=== PATIENT | female | born 1975 | race Caucasian/White ===

== ENCOUNTER 2020-12-05 07:58 | Inpatient (IN) | payer BC ==
[~2020-12-05] VITALS: Ht 154 cm; Wt 100.0 kg
[2020-12-05] MEDS ORDERED: NITRO DRIP 25000 MCG/D5W 250 ML IV ONE (08:06)
[2020-12-05] MEDS ORDERED: HEParin 1000 UNIT/ML (10ML VIAL) FOR BOLUS ONE (08:06)
[2020-12-05] MEDS ORDERED: VERAPAMIL 5 MG/2 ML (CALAN) VIAL IV ONE ×2 (08:06→09:23)
[2020-12-05] MEDS ORDERED: NS IV 1000 ML 1,000 ML ONE (08:08)
[2020-12-05] MEDS ORDERED: HEParin (CATH LAB) 2,000 ML IV ONE (08:08)
--- NOTE | 2020-12-05 08:11 | ED Chest Pain ---
General Stated Complaint: CP Source: patient, EMS Exam Limitations: no limitations History of Present Illness Date Seen by Provider: Dec 05, 2020 Time Seen by Provider: 08:00 Initial Comments Patient is a 45-year-old female who presents to the emergency department today with a chief complaint of substernal chest pain radiating into her back and left jaw and left arm. Patient states that the pain was worse at onset around 630 this morning when she woke from sleep. She states that it is slightly better now and rates it at a "1". EMS confirmed the patient was having a STEMI on scene. She has no past medical history other than headaches for which she takes Topamax but last took it about a month ago. She is also been on phentermine and her last dose was last week. Patient states that she was a little bit nauseous with the pain. She has never had any pain like this before and denies any pain in recent days. No history of hypertension, diabetes or recent illness. No fevers, chills, cough or congestion. No recent black or bloody stools. All other review of systems reviewed and negative except as stated above. Timing/Duration: 1-3 hours Severity/Quality: severe, aching, pressure Location: substernal Radiation: jaw, arms, back Activities at Onset: none Prior CP/Workup: no prior chest pain, no prior cardiac workup ASA po IMPREGNATOR HELPER: Yes NTG SL IMPREGNATOR HELPER: No Allergies and Home Medications Allergies Coded Allergies: No Known Drug Allergies (Unverified , 12/05/20) Patient Home Medication List Home Medication List Reviewed: Yes Review of Systems Review of Systems Constitutional: see HPI EENTM: No Symptoms Reported Respiratory: No Symptoms Reported Cardiovascular: Chest Pain Gastrointestinal: No Symptoms Reported Genitourinary: No Symptoms Reported Musculoskeletal: no symptoms reported Skin: no symptoms reported All Other Systems Reviewed Negative Unless Noted: Yes Physical Exam Vital Signs Vital Signs - First Documented 12/05/20 07:59 Pulse 90 Resp 18 B/P (MAP) 128/114 (119) Pulse Ox 99 O2 Delivery Room Air Capillary Refill : Height, Weight, BMI Height: '" Weight: lbs. oz. kg; BMI Method: General Appearance: No Apparent Distress, WD/WN HEENT: PERRL/EOMI Respiratory: Lungs Clear, Normal Breath Sounds, No Accessory Muscle Use Cardiovascular: Regular Rate, Rhythm, Normal Peripheral Pulses Gastrointestinal: Non Tender, Soft Extremity: Normal Inspection Neurologic/Psychiatric: Alert, Oriented x3, No Motor/Sensory Deficits, Normal Mood/Affect Skin: Normal Color, Warm/Dry Progress/Results/Core Measures Results/Orders Lab Results Laboratory Tests Test 12/05/20 08:05 Range/Units White Blood Count 13.0 H 4.3-11.0 10^3/uL Red Blood Count 4.50 3.80-5.11 10^6/uL Hemoglobin 12.2 11.5-16.0 g/dL Hematocrit 40 35-52 % Mean Corpuscular Volume 88 80-99 fL Mean Corpuscular Hemoglobin 27 25-34 pg Mean Corpuscular Hemoglobin Concent 31 L 32-36 g/dL Red Cell Distribution Width 14.7 H 10.0-14.5 % Platelet Count 226 130-400 10^3/uL Mean Platelet Volume 12.4 H 9.0-12.2 fL Immature Granulocyte % (Auto) 0 % Neutrophils (%) (Auto) 65 42-75 % Lymphocytes (%) (Auto) 26 12-44 % Monocytes (%) (Auto) 6 0-12 % Eosinophils (%) (Auto) 3 0-10 % Basophils (%) (Auto) 0 0-10 % Neutrophils # (Auto) 8.4 H 1.8-7.8 10^3/uL Lymphocytes # (Auto) 3.3 1.0-4.0 10^3/uL Monocytes # (Auto) 0.7 0.0-1.0 10^3/uL Eosinophils # (Auto) 0.4 H 0.0-0.3 10^3/uL Basophils # (Auto) 0.0 0.0-0.1 10^3/uL Immature Granulocyte # (Auto) 0.1 0.0-0.1 10^3/uL Prothrombin Time 12.6 12.2-14.7 SEC INR Comment 0.9 0.8-1.4 Activated Partial Thromboplast Time 31 24-35 SEC Sodium Level 140 135-145 MMOL/L Potassium Level 3.7 3.6-5.0 MMOL/L Chloride Level 108 H 98-107 MMOL/L Carbon Dioxide Level 21 21-32 MMOL/L Anion Gap 11 5-14 MMOL/L Blood Urea Nitrogen 7 7-18 MG/DL Creatinine 0.72 0.60-1.30 MG/DL Estimat Glomerular Filtration Rate > 60 BUN/Creatinine Ratio 10 Glucose Level 126 H 70-105 MG/DL Calcium Level 9.5 8.5-10.1 MG/DL Corrected Calcium 9.6 8.5-10.1 MG/DL Total Bilirubin 0.2 0.1-1.0 MG/DL Aspartate Amino Transf (AST/SGOT) 38 H 5-34 U/L Alanine Aminotransferase (ALT/SGPT) 29 0-55 U/L Alkaline Phosphatase 69 40-136 U/L Troponin I 0.848 *H <0.028 NG/ML Total Protein 7.0 6.4-8.2 GM/DL Albumin 3.9 3.2-4.5 GM/DL Vital Signs/I&O 12/05/20 07:59 Pulse 90 Resp 18 B/P (MAP) 128/114 (119) Pulse Ox 99 O2 Delivery Room Air Progress Progress Note : Time: 08:11 Progress Note Case was discussed with Dr. Del Cid on-call for cardiology prior to patient arrival upon evaluation of the EKG transmitted by EMS. He states to activate Circus Supervisor Initial ECG Impression Date: Dec 05, 2020 Initial ECG Impression Time: 08:05 Initial ECG Rhythm: Normal Sinus Initial ECG Impression: Acute RI Comment ST segment elevation inferiorly and in leads 3,4,5 and 6 Departure Impression Primary Impression: Acute ST segment elevation RI Disposition: ADMITTED INPATIENT Condition: Stable Admissions Decision to Admit Reason: Admit from ER (General) Decision to Admit/Date: Dec 05, 2020 Time/Decision to Admit Time: 08:11 SIXTO BURRELL MD Dec 05, 2020 08:11
[2020-12-05 08:16] VITALS: BP 128/114
[2020-12-05 08:25] LABS: BASOPHILS % (AUTO) 0 % (0-10); EOSINOPHILS # (AUTO) 0.4 10^3/uL (0.0-0.3); EOSINOPHILS % (AUTO) 3 % (0-10); HEMATOCRIT 40 % (35-52); HEMOGLOBIN 12.2 g/dL (11.5-16.0); LYMPHOCYTES # (AUTO) 3.3 10^3/uL (1.0-4.0); LYMPHOCYTES % (AUTO) 26 % (12-44); MEAN CORPUSCULAR HEMOGLOBIN 27 pg (25-34); MEAN CORPUSCULAR HGB CONC 31 g/dL (32-36); MEAN CORPUSCULAR VOLUME 88 fL (80-99); MEAN PLATELET VOLUME 12.4 fL (9.0-12.2); MONOCYTES # (AUTO) 0.7 10^3/uL (0.0-1.0); MONOCYTES % (AUTO) 6 % (0-12); NEUTROPHILS # (AUTO) 8.4 10^3/uL (1.8-7.8); NEUTROPHILS % (AUTO) 65 % (42-75); PLATELET COUNT 226 10^3/uL (130-400)
[2020-12-05 08:28] LABS: INR 0.9 (0.8-1.4); PROTHROMBIN TIME PATIENT 12.6 SEC (12.2-14.7)
[2020-12-05 08:31] LABS: ALANINE AMINOTRANSFERASE 29 U/L (0-55); ALBUMIN 3.9 GM/DL (3.2-4.5); ALKALINE PHOSPHATASE 69 U/L (40-136); BILIRUBIN,TOTAL 0.2 MG/DL (0.1-1.0); BUN/CREATININE RATIO 10; CALCIUM 9.5 MG/DL (8.5-10.1); CARBON DIOXIDE 21 MMOL/L (21-32); CHLORIDE 108 MMOL/L (98-107); CREATININE SERUM 0.72 MG/DL (0.60-1.30); GFR ESTIMATED > 60; GLUCOSE 126 MG/DL (70-105); POTASSIUM 3.7 MMOL/L (3.6-5.0); SODIUM 140 MMOL/L (135-145)
[2020-12-05] MEDS ORDERED: ATROPINE INJECTION 1 MG/10 ML SYR (ABBOTT) ONE (08:40)
[2020-12-05] MEDS ORDERED: TICAGRELOR 90 MG TABLET (BRILINTA) PO ONE (08:59)
[2020-12-05] MEDS ORDERED: ADENOSINE 6 MG/2 ML (ADENOCARD) VIAL IV ONE (09:01)
[2020-12-05] MEDS ORDERED: ADENOSINE 90 MG/30 ML (ADENOSCAN) VIAL IV ONE (09:02)
[2020-12-05] MEDS ORDERED: morphine INJ 4 MG/ML 1 ML (VIAL/SYRINGE) ONE (09:13)
[2020-12-05] MEDS ORDERED: fentaNYL INJ 100 MCG/2 ML AMP ONE (09:26)
[2020-12-05] MEDS ORDERED: MIDAZOLAM 5 MG/5 ML (VERSED) VIAL ONE (09:26)
[2020-12-05] MEDS ORDERED: PATIENT MAY USE OWN MEDS, ALL PO SCH (10:00)
--- NOTE | 2020-12-05 10:11 | Pre-Op Note & Conscious Sedat ---
Pre-Operative Progress Note H&P Reviewed The H&P was reviewed, patient examined and no changes noted. Date H&P Reviewed: Dec 05, 2020 Time H&P Reviewed: 08:00 Pre-Op Diagnosis: Inferolateral STEMI Conscious Sedation Pre-Proced ASA Score 3 For ASA 3 and 4: Consider anesthesia and medical clearance. Also, for patients with a history of failed moderate sedation consider anesthesia. Airway Lungs Heart ASA score ASA 1: a normal healthy patient ASA 2: a patient with a mild systemic disease (mid diabetes, controlled hypertension, obesity ASA 3: a patient with a severe systemic disease that limits activity (angina, COPD, prior Myocardial infarction) ASA 4: a patient with an incapacitating disease that is a constant threat to life (CHF, renal failure) ASA 5: a moribund patient not expected to survive 24 hrs. (ruptured aneurysm) ASA 6: a declared brain- patient whose organs are being harvested. For emergent operations, add the letter E after the classification Mallampati Classification Grade 3 Sedation Plan Discussed risks with patient/fam The patient is an appropriate candidate to undergo the planned procedure, emile tion, and anesthesia. The patient immediately re-assessed prior to indication. LEONEL SCANLON JR, MD Dec 05, 2020 10:11
--- NOTE | 2020-12-05 10:30 | History & Physicial-Cardiolgy ---
HPI-Cardiology Cardiology Consultation: Date of Consultation 12/05/20 Date of Admission 12/05/2020 Attending Physician Dread Del Cid Jr, MD Admitting Physician No,Local Physician Consulting Physician DREAD DEL CID JR, MD HPI: Time Seen by a Provider: 08:00 Chief Complaint: Chest pain. The patient is a pleasant 45-year-old female with no known history of coronary artery disease. She was in her usual state of health until about 630 this morning when she developed severe substernal chest discomfort with radiation to her left arm and jaw. She was also diaphoretic. She was concerned and called 911 within a short period of time. Upon arrival of the javascript front end developer, an electrocardiogram was performed in the field which showed inferolateral ST elevation and a code STEMI was called from the field. I was subsequently notified about the STEMI in route. When the patient's chest pain was at its worst, she states it was 10/10. When she was in the emergency room after rece iving aspirin her chest pain was 1/10. She complained of some slight shortness of breath. She denies paroxysmal nocturnal dyspnea, orthopnea, palpitations, lightheadedness, syncope, or lower extremity edema. She smokes approximately half pack of cigarettes per day. She denies any illegal drug use. Review of Systems-Cardiology Review of Systems Other comments Review of 10 organ systems is as per the history of present illness, otherwise negative. All Other Systems Reviewed Negative Unless Noted: Yes [id number] Hx Patient Social History Marrital Status: Smoking Status: Current Everyday Smoker Cigaretts per day: 10 Past Medical History PMH Obesity. Family Medical History Family Medical History: Her mother has a history of coronary artery disease. Allergies and Home Medications Allergies Coded Allergies: No Known Drug Allergies (Unverified , 12/05/20) Patient Home Medication List Home Medication List Reviewed: Yes Physical Exam-Cardiology Physical Exam Vital Signs/I&O 12/05/20 12/05/20 12/05/20 12/05/20 07:59 08:16 10:12 10:15 Pulse 90 90 71 Resp 18 18 B/P (MAP) 128/114 (119) 128/114 (119) 117/88 (98) Pulse Ox 99 99 96 O2 Delivery Room Air Nasal Cannula O2 Flow Rate 2.00 Capillary Refill : Less Than 3 Seconds Constitutional: appears stated age, AAO x 3, well-developed, well-nourished, other (She is morbidly obese.) HEENT: normal ENT inspection, EOMI Neck: supple, normal inspection, carotid pulses are 2 + bilaterally, with good upstrokes Respiratory: lungs clear to auscultation Cardiovascular: regular rate-rhythm, S1 and S2, other (No murmur.) Gastrointestinal: soft, other (No tenderness.) Rectal: deferred Extremities: normal range of motion, normal inspection (No edema.) Neurologic/Psychiatric: die designer apprentice II-XII nml as tested, alert, normal mood/affect, oriented x 3 Skin: normal color, diaphoresis Data Review Labs Laboratory Tests 12/05/20 08:05: White Blood Count 13.0H, Red Blood Count 4.50, Hemoglobin 12.2, Hematocrit 40, Mean Corpuscular Volume 88, Mean Corpuscular Hemoglobin 27, Mean Corpuscular Hemoglobin Concent 31L, Red Cell Distribution Width 14.7H, Platelet Count 226, Mean Platelet Volume 12.4H, Immature Granulocyte % (Auto) 0, Neutrophils (%) (Auto) 65, Lymphocytes (%) (Auto) 26, Monocytes (%) (Auto) 6, Eosinophils (%) (Auto) 3, Basophils (%) (Auto) 0, Neutrophils # (Auto) 8.4H, Lymphocytes # (Auto) 3.3, Monocytes # (Auto) 0.7, Eosinophils # (Auto) 0.4H, Basophils # (Auto ) 0.0, Immature Granulocyte # (Auto) 0.1, Prothrombin Time 12.6, INR Comment 0.9, Activated Partial Thromboplast Time 31, Sodium Level 140, Potassium Level 3.7, Chloride Level 108H, Carbon Dioxide Level 21, Anion Gap 11, Blood Urea Nit rogen 7, Creatinine 0.72, Estimat Glomerular Filtration Rate > 60, BUN/Creatinine Ratio 10, Glucose Level 126H, Calcium Level 9.5, Corrected Calcium 9.6, Total Bilirubin 0.2, Aspartate Amino Transf (AST/SGOT) 38H, Alanine Aminotransferase (ALT/SGPT) 29, Alkaline Phosphatase 69, Troponin I 0.848*H, Total Protein 7.0, Albumin 3.9 ECG Impression ECG Comment Sinus rhythm with inferior and lateral precordial ST elevation. A/P-Cardiology Assessment/Admission Diagnosis Acute inferolateral STEMI. The patient had a total thrombotic occlusion of the nondominant right coronary artery. This was treated with angioplasty and drug- eluting stent placement with 1 drug-eluting stent from the proximal down to mid right coronary artery at which point the nondominant right coronary artery divides into multiple small branches which would be too small for stenting. She was given aspirin in the emergency room and ticagrelor in the cardiac catheterization laboratory. These will be continued. She will be placed on beta-franchesca and high-dose statin medication. I will obtain an echocardiogram later today to assess her left ventricular function. Morbid obesity. She needs to work on weight loss to help reduce her risk of recurrent cardiac and noncardiac events. Cigarette smoker. Cigarette smoking cessation was strongly advised. The patient was counseled in this regard. Admission Status: Inpatient Order (span 2 midnights) Reason for Inpatient Admission: Inferolateral STEMI. Clinical Quality Measures AMI/AHF: ASA po Prior to arrival: Yes DREAD DEL CID JR, MD Dec 05, 2020 10:29
[2020-12-05] MEDS ORDERED: ANTACID SUSP 30 ML UDC (MYLANTA) PO PRN (10:45)
--- NOTE | 2020-12-05 11:04 | Coronary Angiography & PCI ---
Coronary Angiography & PCI DATE OF PROCEDURE: 12/05/20 INDICATION: Inferolateral STEMI. PROCEDURES PERFORMED: 1. Diagnostic coronary angiography. 2. Left heart catheterization with hemodynamic measurements. 3.drug-eluting stent to mid right coronary artery for acute inferolateral ST elevation myocardial infarction. PROCEDURE DETAILS: Left heart catheterization was performed through the right radial artery utilizing a 6 Hong Konger system. A 6 [place] Konger Voda 3 guide catheter was utilized to interrogate the left coronary artery. A 6 [place]er Simeon right guide catheter was utilized to interrogate the right coronary artery. There was a fair amount of difficulty finding an appropriate guide catheter with stent in the right coronary artery and this caused a patient related delay to first device activation. Following the procedure, a vascular band was applied to the right radial artery access site and the sheath was removed without difficulty. RESULTS: HEMODYNAMICS: The aortic pressure was 130/88 mmHg. The left ventricular pressure was 131 over 9 mmHg with a left ventricular end-diastolic pressure of 28 mmHg. There was no significant pressure gradient upon the pullback across the aortic valve. CORONARY ANGIOGRAPHY: 1. Left main coronary artery: The left main coronary artery is very short in caliber and free of significant disease. 2. Left anterior descending coronary artery: This is a very large vessel that wraps around the apex and is free of significant disease. 3. Left circumflex coronary artery: The left circumflex coronary artery is dominant and free of significant disease. 4. Right coronary artery: The right coronary artery is small and nondominant. The right coronary artery was totally occluded in the midsegment with evidence of thrombus. PERCUTANEOUS CORONARY INTERVENTION OF RIGHT CORONARY ARTERY: Percutaneous coronary intervention was carried out on the mid right coronary artery through a 6 Hong Konger 3 DRC (Simeon) guide catheter. There was difficulty engaging the right coronary artery with a JR4 guide catheter and an AL-1 guide catheter. This caused the patient related delay to first device activation. Once I finally was able to engage the right coronary artery with the 3 DRC guide catheter, I excessively crossed the lesion with a Whisper medium support guidewire. I subsequently performed coronary angioplasty with a 2.5 x 12 mm Trek balloon at a pressure of 2-6 lilly for multiple inflations. After the first inflation, flow was restored. It then became evident that at the site of the occlusion in the mid right coronary artery, the distal continuation of the vessel was actually multiple small branches. None of these was more than 2 mm in maximal diameter. I subsequently exchanged the 2.5 mm balloon for 2 x 12 mm Trek balloon and performed angioplasty at a pressure of 4 bar in one of the more distal branches. Flow was somewhat sluggish. Intracoronary adenosine and intracoronary nitroglycerin were administered. Flow improved slightly. I subsequently deployed a 2.5 x 8 mm drug-eluting Xience stents from the proximal down to the mid segment at a pressure of 14 lilly. Following stent placement, there was 0% residual stenosis with FRANCISCO J-3 flow. There was still some sluggish flow in the distal branches. CONCLUSIONS: 1. Markedly elevated left ventricular end-diastolic pressure. 2. Total thrombotic occlusion of the mid right coronary artery. This was the ischemia related vessel for the acute myocardial infarction. 3. The left coronary system was free of significant disease. 4. Status post drug-eluting stent placement from the proximal down to the mid right coronary artery with a 2.5 x 28 mm Xience stent with 0% residual stenosis and FRANCISCO J-3 flow. LEONEL SCANLON JR, MD Dec 05, 2020 11:04
[2020-12-05] MEDS: NS IV 1000 ML 1,000 ML IV SCH ×2 (12:37→22:36)
[2020-12-05] MEDS: ACETAMINOPHEN 500 MG TAB (TYLENOL) PO PRN ×2 (13:36→20:20)
[2020-12-05] MEDS: ONDANSETRON 4 MG/2 ML (SDV) Z0FRAN IVP PRN ×2 (14:46→18:18)
[2020-12-05] MEDS ORDERED: ETHI1TAB30 PO (15:17)
[2020-12-05] MEDS ORDERED: DIPH25TA65 PO (15:18)
[2020-12-05] MEDS ORDERED: IBUP1TAB14 PO (15:18)
[2020-12-05] MEDS: TICAGRELOR 90 MG TABLET (BRILINTA) PO SCH (20:14)
[2020-12-05] MEDS: ZOLPIDEM 5 MG (AMBIEN) TAB PO PRN (20:20)
[2020-12-06 04:16] LABS: HEMATOCRIT 35 % (35-52); HEMOGLOBIN 10.9 g/dL (11.5-16.0); MEAN CORPUSCULAR HEMOGLOBIN 28 pg (25-34); MEAN CORPUSCULAR HGB CONC 32 g/dL (32-36); MEAN CORPUSCULAR VOLUME 87 fL (80-99); MEAN PLATELET VOLUME 11.9 fL (9.0-12.2); PLATELET COUNT 183 10^3/uL (130-400); WHITE BLOOD COUNT 11.6 10^3/uL (4.3-11.0)
[2020-12-06 04:32] LABS: CHLORIDE 107 MMOL/L (98-107); POTASSIUM 3.6 MMOL/L (3.6-5.0); SODIUM 137 MMOL/L (135-145)
[2020-12-06 04:33] LABS: CALCIUM 8.4 MG/DL (8.5-10.1)
[2020-12-06 04:34] LABS: GLUCOSE 134 MG/DL (70-105)
[2020-12-06 04:35] LABS: CARBON DIOXIDE 20 MMOL/L (21-32)
[2020-12-06 04:38] LABS: CREATININE SERUM 0.62 MG/DL (0.60-1.30); GFR ESTIMATED > 60
[2020-12-06 04:39] LABS: BUN/CREATININE RATIO 8
[2020-12-06] MEDS: NS IV 1000 ML 1,000 ML IV SCH ×2 (06:05→18:28)
[2020-12-06] MEDS: NICOTINE 14 MG (NICODERM) PATCH TD SCH (08:42)
[2020-12-06] MEDS: ASPIRIN E.C. 81 MG (ECOTRIN) TAB PO SCH (08:43)
[2020-12-06] MEDS: NICOTINE PATCH REMOVAL TP SCH (08:43)
[2020-12-06] MEDS: TICAGRELOR 90 MG TABLET (BRILINTA) PO SCH ×2 (08:43→20:29)
--- NOTE | 2020-12-06 11:45 | Cardiology Progress Note ---
Cardiology Progess Note Progress Date Seen by Provider: Dec 06, 2020 Time Seen by Provider: 11:44 S:She has done well overnight. She did have some nausea and vomiting but she states this is related to her long history of gagging on medications. Her chest and jaw pain has resolved. She denies shortness of breath, palpitations, syncope, or lower extremity edema. Focused Exam Respiratory: Lungs Clear Cardiovascular: Regular Rate, Rhythm, No Edema, No Gallop, No Murmur, Normal Peripheral Pulses Skin: normal color, warm/dry A/P-Cardiology Assessment/Plan Plan See below. Diagnosis/Problems Diagnosis/Problems (1) ST elevation myocardial infarction (STEMI) of inferolateral wall Assessment & Plan: No further chest pain. No significant arrhythmias.We will continue guideline directed medical therapy with aspirin, ticagrelor, beta- franchesca, and high-dose statin medication. Hopefully she can be discharged to home tomorrow. I will transfer her to the stepdown unit. (2) Cardiomyopathy Assessment & Plan: She has mild left ventricular systolic dysfunction as noted on her post intervention echocardiogram. Some of this could have been due to regional myocardial stunning although the wall motion abnormality is anterior and lateral whereas the ischemia related vessel was inferior. Nonetheless, I will place her on low dose SAMUEL inhibitor. She is already on carvedilol. I will plan on a follow-up echocardiogram 1 to 2 months after discharge. (3) Essential hypertension Assessment & Plan: Blood pressures are intermittently elevated. I started carvedilol due to the acute myocardial infarction. I will increase the dose of carvedilol and add lisinopril for the cardiomyopathy then continue to monitor her blood pressures. (4) Mixed hyperlipidemia Assessment & Plan: Continue high-dose statin medication in light of the acute myocardial infarction. I will plan to repeat the lipid panel as an outpatient in approximately 2 months. (5) Morbid obesity Assessment & Plan: She needs to continue to work on weight loss. (6) Cigarette smoker Assessment & Plan: She has nicotine patch in place. Hopefully, she will quit smoking in light of this event Clinical Quality Measures AMI/AHF: ASA po Prior to arrival: Yes LEONEL SCANLON JR, MD Dec 06, 2020 11:45
[2020-12-06] MEDS ORDERED: lisINopril 10 MG (PRINIVIL) TABLET PO NR (17:00)
[2020-12-07] MEDS: ZOLPIDEM 5 MG (AMBIEN) TAB PO PRN (01:24)
[2020-12-07] MEDS: NS IV 1000 ML 1,000 ML IV SCH (01:57)
[2020-12-07] MEDS: NICOTINE 14 MG (NICODERM) PATCH TD SCH (08:19)
[2020-12-07] MEDS: ASPIRIN E.C. 81 MG (ECOTRIN) TAB PO SCH (08:19)
[2020-12-07] MEDS: TICAGRELOR 90 MG TABLET (BRILINTA) PO SCH (08:19)
[2020-12-07] MEDS: NICOTINE PATCH REMOVAL TP SCH (08:19)
[2020-12-07] MEDS ORDERED: lisINopril 10 MG (PRINIVIL) TABLET PO SCH (09:00)
[2020-12-07] MEDS ORDERED: NICO1PAT38 TD (09:38)
[2020-12-07] MEDS ORDERED: ATOR80TA76 PO (09:38)
[2020-12-07] MEDS ORDERED: ASPI-1238 PO (09:38)
[2020-12-07] MEDS ORDERED: CARV6.252 PO (09:38)
[2020-12-07] MEDS ORDERED: TICA90TA PO (09:38)
[2020-12-07] MEDS ORDERED: LISI10TA25 PO (09:38)
--- NOTE | 2020-12-07 09:39 | Discharge Inst-Cardiology ---
Discharge Inst-Cardiac Problems Reviewed?: Yes Discharge Medications New, Converted or Re-Newed RX: Transmitted to Pharmacy Patient Instructions Patient Instructions: No heavy lifting for 1 week. Return to The Hospital For: Recurrent chest pain. Activity & Diet Discharge Diet: Avoid Fatty Foods, Low Fat/Low Cholesterol Drink 6-8 Glasses/Fluids/Day: Yes Activity as Tolerated: Yes LEONEL SCANLON JR, MD Dec 07, 2020 09:39
--- NOTE | 2020-12-07 09:45 | Discharge Summary ---
Diagnosis/Chief Complaint Date of Admission Dec 05, 2020 at 08:00 Date of Discharge December 07, 2020 Discharge Date: Dec 07, 2020 Discharge Time: 09:44 Admission Diagnosis Admission Diagnosis Acute inferolateral ST elevation myocardial infarction. Discharge Diagnosis Coronary artery disease with acute inferolateral ST elevation myocardial infarction. Cardiomyopathy. Essential hypertension. Mixed hyperlipidemia. Morbid obesity. Cigarette smoker. Reason Hospital Visit On the day of admission, she had called 911 due to chest pain. She had an ECG performed by the trust operations assistant and this showed inferolateral ST elevation and a code STEMI was called from the field. Shortly after arrival in the emergency room, she was taken for emergency cardiac catheterization. She was noted to have a total thrombotic occlusion of the mid right coronary artery which was a nondominant vessel. This was treated with angioplasty and drug-eluting stent placement. An echocardiogram several hours after the procedure showed mild left ventricular systolic dysfunction with anterior and lateral hypokinesis. This was somewhat puzzling since her ischemic vessel was on the inferior wall. Nonetheless, following the procedure she did well without any recurrent chest discomfort by the day after the procedure. She had no significant arrhythmias and no signs of heart failure. She was placed on beta-franchesca and OJ inhibitor for the myocardial infarction with left ventricular dysfunction. She was placed on high-dose statin medication. On the day of discharge she was ambulating without any significant difficulties. She will be discharged home. We will get her enrolled in outpatient cardiac rehab. I will plan to see her in the office for follow-up in approximately 1 month's time. Over 30 minutes was spent in direct [id number] contact with the patient and preparing this discharge summary. Discharge Summary Hospital Course Was the Problem List Reviewed?: Yes Hospital Course See description. Labs Laboratory Tests 12/05/20 08:05: White Blood Count 13.0H, Mean Corpuscular Hemoglobin Concent 31L, Red Cell Distribution Width 14.7H, Mean Platelet Volume 12.4H, Neutrophils # (Auto) 8.4H, Eosinophils # (Auto) 0.4H, Chloride Level 108H, Glucose Level 126H, Aspartate Amino Transf (AST/SGOT) 38H, Troponin I 0.848*H 12/05/20 13:45: Troponin I 43.415*H, Triglycerides Level 207H, VLDL Cholesterol 41H 12/05/20 22:01: Troponin I 59.374*H 12/06/20 04:07: White Blood Count 11.6H, Glucose Level 134H, Troponin I 37.542*H, Hemoglobin 10.9L, Carbon Dioxide Level 20L, Blood Urea Nitrogen 5L, Calcium Level 8.4L Procedures Cardiac catheterization with percutaneous coronary intervention and echocardiogram. Discharge Physical Examination Allergies: Coded Allergies: No Known Drug Allergies (Unverified , 12/07/20) Verified Vitals & I&Os Vital Signs Date Time Temp Pulse Resp B/P (MAP) Pulse Ox O2 Delivery O2 Flow Rate FiO2 12/07/20 09:00 98 Room Air 12/07/20 08:16 37.1 90 16 117/76 (90) 12/05/20 16:00 2.00 General Appearance: Alert, Oriented X3, Cooperative, No Acute Distress HEENT: Atraumatic, EOMI Respiratory: Clear to Auscultation Cardiovascular: Regular Rate, Normal S1, Normal S2, No Murmurs Abdominal: Normal Bowel Sounds, Soft Extremities: No Clubbing, No Cyanosis, No Edema, Normal Pulses Neuro: Normal Gait, Normal Speech, Strength at 5/5 X4 Ext Psych/Mental Status: Mental Status NL Discharge Home Medications Reviewed and agree with Discharge Medication list on patient's Discharge Instruction sheet Condition at Discharge Improved. Instructions to Patient/Family Please see electronic discharge instructions given to patient. Clinical Quality Measures Admission Status Admission Status: Inpatient Order (span 2 midnights) Reason for Inpatient Admission: Acute myocardial infarction. AMI/AHF: Ejection Fraction: Above/Equal to 40 D/C Medications Addressed: Oj inhibitors, Beta franchesca D/C Inst. for HF given: No ASA po Prior to arrival: Yes DVT/VTE Risk/Contraindication: VTE Addressed: Yes VTE Present on Admission: No RFS Level Per Nursing on Admit: 1=Low/No VTE PPX Smoking Cessation Counseling: Counseling-Symptomatic: 3-10 Minutes LEONEL SCANLON JR, MD Dec 07, 2020 09:45
== END 2020-12-07 10:45 | disposition home or self-care (01) | DRG 247 ==
LOC: EDUNIT# 07:58 → ER 07:59 → CATH 08:12 → ICU 09:57 → CATH 12-06 11:15 → ICU 12-06 11:19 → CSD 12-06 15:59
PROVIDERS: ADMIT Internal Medicine Cardiovascular Disease; ATTEND Internal Medicine Cardiovascular Disease
PROC: 027034Z Dilation of Coronary Artery, One Artery with Drug-eluting Intraluminal Device, Percutaneous Approach (ICD-10-PCS; principal; 2020-12-05)
PROC: 4A023N7 Measurement of Cardiac Sampling and Pressure, Left Heart, Percutaneous Approach (ICD-10-PCS; 2020-12-05)
PROC: B2111ZZ Fluoroscopy of Multiple Coronary Arteries using Low Osmolar Contrast (ICD-10-PCS; 2020-12-05)
DX: I21.19 ST elevation (STEMI) myocardial infarction involving other coronary artery of inferior wall (principal); I42.9 Cardiomyopathy, unspecified; Z68.41 Body mass index [BMI] 40.0-44.9, adult; I25.10 Atherosclerotic heart disease of native coronary artery without angina pectoris; I10 Essential (primary) hypertension; E78.2 Mixed hyperlipidemia; E66.01 Morbid (severe) obesity due to excess calories; F17.210 Nicotine dependence, cigarettes, uncomplicated; Z82.49 Family history of ischemic heart disease and other diseases of the circulatory system
CPT/HCPCS: 36415; 80048; 80053; 80061; 84484; 85025; 85027; 85347; 85610; 85730; 93005; 93306; 93458

== ENCOUNTER → 2021-01-28 | Outpatient (CLI) | payer BC ==
[~2021-01-28] MED LIST: ASPI-1238 PO; ATOR80TA76 PO; CARV6.252 PO; DIPH25TA65 PO; ETHI1TAB30 PO; IBUP1TAB14 PO; LISI10TA25 PO; NICO1PAT38 TD; TICA90TA PO
[2021-01-28 10:09] LABS: ALBUMIN 3.6 GM/DL (3.2-4.5); BILIRUBIN,TOTAL 0.3 MG/DL (0.1-1.0); CALCIUM 8.5 MG/DL (8.5-10.1); CREATININE SERUM 0.66 MG/DL (0.60-1.30); POTASSIUM 3.9 MMOL/L (3.6-5.0); TOTAL PROTEIN 6.6 GM/DL (6.4-8.2)
== END ==
LOC: CARD 09:00
PROVIDERS: ATTEND Internal Medicine Cardiovascular Disease
DX: I08.0 Rheumatic disorders of both mitral and aortic valves (principal); I42.9 Cardiomyopathy, unspecified
CPT/HCPCS: 36415; 80053; 80061; 93306

== ENCOUNTER 2021-02-11 09:24 | Outpatient (RCR) | payer BC | END 2021-04-02 | disposition home or self-care (01) | LOC: CR 09:24 | PROVIDERS: ATTEND Internal Medicine Cardiovascular Disease | DX: I21.19 ST elevation (STEMI) myocardial infarction involving other coronary artery of inferior wall (principal) | CPT/HCPCS: 93798 ==

== ENCOUNTER → 2021-02-13 | Outpatient (CLI) | payer BC ==
[2021-02-13 09:03] LABS: ALBUMIN 3.8 GM/DL (3.2-4.5); POTASSIUM 4.2 MMOL/L (3.6-5.0)
[2021-02-13 09:04] LABS: CALCIUM 8.9 MG/DL (8.5-10.1)
[2021-02-13 09:05] LABS: TOTAL PROTEIN 6.5 GM/DL (6.4-8.2)
[2021-02-13 09:07] LABS: BILIRUBIN,TOTAL 0.4 MG/DL (0.1-1.0)
[2021-02-13 09:09] LABS: CREATININE SERUM 0.77 MG/DL (0.60-1.30)
== END ==
LOC: LAB 08:35
PROVIDERS: ATTEND Internal Medicine Cardiovascular Disease
DX: E78.2 Mixed hyperlipidemia (principal)
CPT/HCPCS: 36415; 80053

== ENCOUNTER → 2021-02-27 | Outpatient (CLI) | payer BC ==
[2021-02-27 08:34] LABS: ALBUMIN 3.8 GM/DL (3.2-4.5); BILIRUBIN,TOTAL 0.3 MG/DL (0.1-1.0); CALCIUM 9.1 MG/DL (8.5-10.1); CREATININE SERUM 0.7 MG/DL (0.60-1.30); POTASSIUM 4.3 MMOL/L (3.6-5.0); TOTAL PROTEIN 6.6 GM/DL (6.4-8.2)
== END ==
LOC: LAB 07:58
PROVIDERS: ATTEND Internal Medicine Cardiovascular Disease
DX: E78.2 Mixed hyperlipidemia (principal)
CPT/HCPCS: 36415; 80053

== ENCOUNTER → 2021-03-14 | Outpatient (CLI) | payer BC ==
[2021-03-14 09:20] LABS: ALBUMIN 3.7 GM/DL (3.2-4.5); BILIRUBIN,TOTAL 0.4 MG/DL (0.1-1.0); CALCIUM 9.1 MG/DL (8.5-10.1); CREATININE SERUM 0.64 MG/DL (0.60-1.30); POTASSIUM 3.9 MMOL/L (3.6-5.0); TOTAL PROTEIN 6.5 GM/DL (6.4-8.2)
== END ==
LOC: LAB 08:09
PROVIDERS: ATTEND Internal Medicine Cardiovascular Disease
DX: E78.2 Mixed hyperlipidemia (principal)
CPT/HCPCS: 36415; 80053

== ENCOUNTER → 2022-03-20 | Outpatient (CLI) | payer BC ==
[2022-03-20 09:03] LABS: BASOPHILS % (AUTO) 1 % (0-10); EOSINOPHILS # (AUTO) 0.4 10^3/uL (0.0-0.3); EOSINOPHILS % (AUTO) 8 % (0-10); HEMATOCRIT 38 % (35-52); HEMOGLOBIN 12.6 g/dL (11.5-16.0); LYMPHOCYTES # (AUTO) 2.3 10^3/uL (1.0-4.0); LYMPHOCYTES % (AUTO) 41 % (12-44); MEAN CORPUSCULAR HEMOGLOBIN 31 pg (25-34); MEAN CORPUSCULAR HGB CONC 34 g/dL (32-36); MEAN CORPUSCULAR VOLUME 91 fL (80-99); MEAN PLATELET VOLUME 10.9 fL (9.0-12.2); MONOCYTES # (AUTO) 0.4 10^3/uL (0.0-1.0); MONOCYTES % (AUTO) 7 % (0-12); NEUTROPHILS # (AUTO) 2.4 10^3/uL (1.8-7.8); NEUTROPHILS % (AUTO) 44 % (42-75); PLATELET COUNT 177 10^3/uL (130-400); WHITE BLOOD COUNT 5.5 10^3/uL (4.3-11.0)
[2022-03-20 09:24] LABS: ALBUMIN 3.7 GM/DL (3.2-4.5); BILIRUBIN,TOTAL 0.4 MG/DL (0.1-1.0); CALCIUM 8.9 MG/DL (8.5-10.1); CREATININE SERUM 0.66 MG/DL (0.60-1.30); POTASSIUM 4.2 MMOL/L (3.6-5.0); TOTAL PROTEIN 6.4 GM/DL (6.4-8.2)
== END ==
LOC: LAB 08:38
PROVIDERS: ATTEND Internal Medicine Cardiovascular Disease
DX: I25.10 Atherosclerotic heart disease of native coronary artery without angina pectoris (principal); I42.9 Cardiomyopathy, unspecified; R06.09 Other forms of dyspnea; I71.2 Thoracic aortic aneurysm, without rupture; I10 Essential (primary) hypertension; I25.2 Old myocardial infarction; E78.2 Mixed hyperlipidemia; E66.01 Morbid (severe) obesity due to excess calories
CPT/HCPCS: 36415; 80053; 80061; 83036; 84443; 85025

== ENCOUNTER → 2022-03-25 | Outpatient (CLI) | payer BC | LOC: CARD 08:30 | PROVIDERS: ATTEND Internal Medicine Cardiovascular Disease | DX: I71.2 Thoracic aortic aneurysm, without rupture (principal); I51.7 Cardiomegaly | CPT/HCPCS: 93306 ==